=== PATIENT | male | born 1955 | race Caucasian/White ===

== ENCOUNTER 2019-07-09 14:48 | Inpatient (IN) | payer OTHER ==
[~2019-07-09] VITALS: Ht 177.8 cm; Wt 89.0 kg
[2019-07-09 15:45] LABS: Basophils # (auto) 0 uL; Basophils % (auto) 0.7 % (0.0-2.0); Eosinophils # (auto) 0.3 uL; Eosinophils % (auto) 7.1 % (0.0-7.0); Hematocrit 38.1 % (41.0-53.0); Hemoglobin 13.2 g/dL (13.5-17.5); Lymphocytes # (auto) 1.8 uL; Lymphocytes % (auto) 37.3 % (10.0-50.0); Mean Corpuscular Hemoglobin 30.2 pg (28.0-32.0); Mean Corpuscular Hgb Conc. 34.6 g/dL (32.0-36.0); Mean Corpuscular Volume 87.3 fL (80.0-100.0); Monocytes # (auto) 0.4 uL; Monocytes % (auto) 8.2 % (0.0-12.0); Neutrophils # (auto) 2.2 uL; Neutrophils % (auto) 46.7 % (37.0-80.0); Nucleated Red Blood Cells % 0.1 %; Platelet Count (auto) 204 10^3/uL (140-450); Red Blood Cells 4.37 10^6/uL (4.5-5.90); Red Cell Distribution Width 13.7 % (11.8-14.3); White Blood Cell 4.8 10^3/uL (4.4-10.8)
[2019-07-09 16:10] LABS: Calcium 8.7 mg/dL (8.5-10.1); Chloride 107 mmol/L (98-107); Potassium 3.9 mmol/L (3.5-5.1); Sodium 140 mmol/L (136-145)
[2019-07-09 16:13] LABS: Albumin 3.5 g/dL (3.4-5.0); Anion Gap 6 (5-15); BUN/Creatinine Ratio 13.5; Blood Alcohol < 3.0 mg/dL (0-5); Blood Urea Nitrogen 13 mg/dL (7-18); Carbon Dioxide 27 mmol/L (21-32); GFR African American 102 mL/min; GFR Non-African American 84 mL/min; Glucose 102 mg/dL (74-106); Magnesium 2.4 mg/dL (1.6-2.6)
[2019-07-09 16:18] LABS: Alanine Aminotransferase 17 U/L (16-61); Alkaline Phosphatase 67 U/L (45-117); Aspartate Aminotransferase 13 U/L (15-37); Bilirubin, Total 0.3 mg/dL (0.2-1.0); Total Protein 6.9 g/dL (6.4-8.2)
[2019-07-09 16:46] LABS: Urine WBC None Seen /hpf (0 - 3)
[2019-07-09 16:55] LABS: INR 0.94 (0.9-1.15); Partial Thromboplastin Time 26.5 sec (23.64-32.05)
[2019-07-09 17:00] LABS: Urine Bacteria NONE SEEN /hpf (None Seen); Urine Blood Negative /uL (Negative); Urine Specific Gravity 1.007 (1.001-1.035)
[2019-07-09] MEDS ORDERED: NITROGLYCERIN 0.4 MG SL TAB SL PRN (17:15)
[2019-07-09] MEDS ORDERED: MORPHINE SULF INJ 2 MG/ML SYRINGE 1ML IV PRN (17:15)
[2019-07-09] MEDS ORDERED: hydrALAZINE HCL 20 MG/ML VL IV PRN (17:45)
[2019-07-09] MEDS ORDERED: ASPirin 81 mg TAB ONE (17:53)
[2019-07-09] MEDS: ASPirin 81 mg TAB PO SCH (17:56)
[2019-07-09] MEDS ORDERED: ASPirin 81 mg TAB PO ONE ×2 (18:00)
[2019-07-09 18:20] VITALS: BP 148/77
--- NOTE | 2019-07-09 18:26 | NUR ---
Telemetry admit from ER [facility] admitted to Telemetry unit after SBAR received. Patient oriented to Muna Valentin, primary RN, unit, room, bed, and unit policies regarding patient care and visiting hours. Patient now on continuous telemetry monitoring, tele box #[id number] and telemetry reading on arrival to unit is SB @ 40. Patient is asymptomatic, BP 148/77, HR 40, o2 saturation 98%. Patient placed on 3 LPM/NC. Bed set to lowest position/locked, bedside rails up x2, call light within reach. Instructed patient to call for assistance. Patient verbalized understanding. Will continue to
[2019-07-09] MEDS: SODIUM CHLORIDE 0.9% 1,000 ML IV SCH (18:55)
--- NOTE | 2019-07-09 19:14 | NUR ---
ENDORSED CARE TO MACHO GONZALEZ.
--- NOTE | 2019-07-09 19:44 | NUR ---
open note assumed care of pt. upon entering room pt awake, alert and oriented x4, pt on 2l nc no distress noted. pt report "stiff neck" and face does appear to droop on left side. pt denies any other deficit. pt updated on plan of care. no questions at this time. bed locked, low and 2x rails up. call light in reach. no additional questions at this time. pt meal was heated up per pt request. will round on pt q1hr and prn.
[2019-07-09 20:22] LABS: INR 0.96 (0.9-1.15)
[2019-07-09 20:29] LABS: Cholesterol 153 mg/dL (< 200); HDL Cholesterol 28 mg/dL (40-59); LDL Cholesterol 91 mg/dL (< 100); Triglycerides 174 mg/dL (< 150)
[2019-07-09 21:00] VITALS: BP 132/65
--- NOTE | 2019-07-09 22:06 | NUR ---
Dr Gutierrez called. orders received for NPO after midnight. also for atropine 0.5mg ivp q6prn for HR less than 40bpm.
--- NOTE | 2019-07-09 22:48 | NUR ---
radha called. pt HR in 30's. upon entering room, pt eyes closed, breathing even and unlabored. pt easy to wake via name. alert and oriented x4. no complaints at this time. vitals 142/76mmhg [id number] rr16 97% o2 saturation on room air. pt got up to ambulate to restroom, heart rate increased to 50bpm. call light in reach, will continue to monitor.
[2019-07-09] MEDS ORDERED: ATROPINE SULFATE 1 MG/1 ML VIAL ONE (23:17)
[2019-07-09 23:30] VITALS: BP_SYST 125; BP_SYST 142; BP_DIAS 44; BP_DIAS 76
[2019-07-09] MEDS: ATROPINE SULF 1 MG/10ml SYR IV PRN (23:33)
--- NOTE | 2019-07-09 23:45 | NUR ---
pt HR in the 30's. upon entering room, pt easy to wake via name, alert and oriented x4. no complaints. no distress noted or verbalized. prn atropine 0.5mg administered pr MD order for HR less than 40bpm. pt tolerated well. call light in reach. will continue to monitor.
[2019-07-10] MEDS ORDERED: ATROPINE SULF 1 MG/10ml SYR IV ONE
--- NOTE | 2019-07-10 00:11 | NUR ---
rounds upon entering room, pt eyes closed, breathing is even an unlabored. pt on 2L NC no distress noted. pt o2 sat 97%. HR 50bpm. call light in reach, will continue to monitor.
[2019-07-10] MEDS: ATROPINE SULF 1 MG/10ml SYR IV PRN (04:18)
--- NOTE | 2019-07-10 04:18 | NUR ---
PT HR 29BPM. upon entering room pt eyes closed, breathing even and unlabored. pt easily awake via name. pt alert and oriented x4. pt on 2L via NC no distress noted. pt vitals 97.8f oral, rr19 95% o2 saturation on 2L nc bp 154/70mmhg. pt given IV atropine 0.5mg. pt tolerated well. pt complaints of 10/0-10 pain in back. will page Mynor HART for pt complaint of pain.
[2019-07-10 04:30] VITALS: BP 154/70
--- NOTE | 2019-07-10 04:31 | NUR ---
pt HR 67bpm. pt awake, alert and oriented. paged and spoke with Dr Blum, to notify of HR; no additional orders given for bradycardia given. also made MD aware of pt reports pain 10/0-10. received order for MS 2mg iv q4 prn. will input and administer per and KINA order.
[2019-07-10 06:17] LABS: Basophils # (auto) 0.1 uL; Basophils % (auto) 1.3 % (0.0-2.0); Eosinophils # (auto) 0.3 uL; Eosinophils % (auto) 6.3 % (0.0-7.0); Hematocrit 37.9 % (41.0-53.0); Hemoglobin 13.1 g/dL (13.5-17.5); Lymphocytes # (auto) 1.2 uL; Mean Corpuscular Hgb Conc. 34.5 g/dL (32.0-36.0); Mean Corpuscular Volume 86.8 fL (80.0-100.0); Monocytes # (auto) 0.4 uL; Monocytes % (auto) 8.2 % (0.0-12.0); Neutrophils # (auto) 2.6 uL; Neutrophils % (auto) 57.2 % (37.0-80.0); Nucleated Red Blood Cells % 0.1 %; Platelet Count (auto) 192 10^3/uL (140-450); Red Blood Cells 4.37 10^6/uL (4.5-5.90); Red Cell Distribution Width 13.8 % (11.8-14.3); White Blood Cell 4.5 10^3/uL (4.4-10.8)
[2019-07-10 06:34] LABS: BUN/Creatinine Ratio 14.5; Calcium 8.4 mg/dL (8.5-10.1); Potassium 3.8 mmol/L (3.5-5.1)
[2019-07-10 08:00] VITALS: BP 144/74
[2019-07-10 09:13] VITALS: BP 144/74
--- NOTE | 2019-07-10 09:30 | NUR ---
DR. CRUZ AT BEDSIDE DR. CRUZ TOLD THE PT THAT HE NEED PACEMAKER, PT VERBALIZED UNDERSTANDING. PER DR. CRUZ PT NEED ECHOCARDIOGRAM PRIOR TO PROCEDURE. WILL FOLLOW UP ECHOCARDIOGRAM.
[2019-07-10] MEDS: ASPirin 81 mg TAB PO SCH (10:00)
[2019-07-10] MEDS: MORPHINE SULF INJ 2 MG/ML SYRINGE 1ML IV PRN ×3 (10:12→23:37)
--- NOTE | 2019-07-10 10:16 | NUR ---
DR. SCHWARTZ AT BEDSIDE, PT MADE AWARE PT DOESN'T NEED MRI OF THE BRAIN. DR. SCHWARTZ SAID HE SPOKE WITH DR. WALKER AND HE SAID FACIAL DROOPING IS DUE TO BELLS PALSY AND NOT STROKE.
[2019-07-10] MEDS ORDERED: MORP30TA PO (10:44)
[2019-07-10] MEDS ORDERED: IBUP800T24 PO (10:44)
--- NOTE | 2019-07-10 11:15 | NUR ---
PT TRANSPORTED TO [facility] VIA BED, PRE-OP CHECKLIST COMPLETED, CONSENTS SIGNED , IV ON LEFT FOREARM PATENT AND FLUSHING, CHLORHEXIDINE WIPES DONE, NO SIGNS OF DISTRESS AT THIS TIME.
[2019-07-10] MEDS ORDERED: LIDOCAINE 2%HCL (LOCAL ANESTH.) INJ 20ML MDV ONE (11:32)
[2019-07-10] MEDS ORDERED: BACITRACIN INJ 50000 UNIT VIAL ONE (11:48)
[2019-07-10] MEDS ORDERED: VANCOMYCIN 1GM/250ML 250 ML IV ONE (11:48)
[2019-07-10] MEDS ORDERED: VANCOMYCIN HCL 1000 MG VL ONE (11:48)
[2019-07-10] MEDS ORDERED: MIDAZOLAM HCL 1MG/1ML-2 ML VIAL ONE (11:55)
[2019-07-10] MEDS ORDERED: fentaNYL CITRATE 100 MCG/2 ML VL ONE (11:55)
--- NOTE | 2019-07-10 14:39 | NUR ---
received report from MACHO Ellsworth of cathlab
[2019-07-10] MEDS: SODIUM CHLORIDE 0.9% 1,000 ML IV SCH ×2 (17:19→20:49)
[2019-07-10 17:23] VITALS: BP 150/89
--- NOTE | 2019-07-10 18:39 | NUR ---
CALLED DR. SCHWARTZ IF PT CAN HAVE NICOTINE PATCH, DR. SCHWARTZ ORDERED NICOTINE PATCH 14MG NOW AND DAILY.
[2019-07-10] MEDS ORDERED: NICOTINE 14 MG/24HR TOPICAL PATCH TD ONE (18:45)
--- NOTE | 2019-07-10 19:52 | NUR ---
[employer] at bedside. no issues noted. reports will return for another check in the AM.
--- NOTE | 2019-07-10 20:00 | NUR ---
open note assumed care of pt. upon entering room pt awake, alert and oriented x4. pt on room air no distress noted or expressed. pt dressing to left upper chest clean dry and intact. pt aware of activity restriction regarding left arm and is in sling. pt updated on plan of care. no questions at this time. pt call light in reach. will round on pt q1hr and prn.
[2019-07-10 22:00] VITALS: BP 134/70
[2019-07-10] MEDS: DOXYCYCLINE 100 MG TAB/CAP PO SCH (22:15)
[2019-07-10] MEDS: ONDANSETRON HCL 4 MG/2 ML VIAL IV PRN (23:17)
[2019-07-11] MEDS ORDERED: VANCOMYCIN 1GM/250ML 250 ML IV SCH
[2019-07-11] MEDS: MORPHINE SULF INJ 2 MG/ML SYRINGE 1ML IV PRN ×2 (03:50→10:23)
[2019-07-11 05:34] VITALS: BP 129/68
[2019-07-11 06:00] LABS: Basophils # (auto) 0 uL; Basophils % (auto) 0.5 % (0.0-2.0); Eosinophils # (auto) 0.1 uL; Hematocrit 37.6 % (41.0-53.0); Hemoglobin 13.1 g/dL (13.5-17.5); Lymphocytes # (auto) 1.1 uL; Lymphocytes % (auto) 15.2 % (10.0-50.0); Mean Corpuscular Hemoglobin 30.3 pg (28.0-32.0); Mean Corpuscular Hgb Conc. 34.8 g/dL (32.0-36.0); Monocytes # (auto) 0.5 uL; Monocytes % (auto) 7.6 % (0.0-12.0); Neutrophils # (auto) 5.3 uL; Neutrophils % (auto) 74.7 % (37.0-80.0); Nucleated Red Blood Cells % 0.1 %; Platelet Count (auto) 179 10^3/uL (140-450); Red Blood Cells 4.32 10^6/uL (4.5-5.90); White Blood Cell 7.1 10^3/uL (4.4-10.8)
[2019-07-11 06:16] LABS: BUN/Creatinine Ratio 14.1; Calcium 8.3 mg/dL (8.5-10.1); Potassium 3.4 mmol/L (3.5-5.1)
[2019-07-11] MEDS: ASPirin 81 mg TAB PO SCH (08:31)
[2019-07-11 09:00] VITALS: BP 119/69
[2019-07-11] MEDS: DOXYCYCLINE 100 MG TAB/CAP PO SCH (09:41)
[2019-07-11] MEDS ORDERED: NICOTINE 14 MG/24HR TOPICAL PATCH TD SCH (10:00)
[2019-07-11] MEDS: ONDANSETRON HCL 4 MG/2 ML VIAL IV PRN (10:23)
[2019-07-11 11:39] VITALS: BP 125/55
[2019-07-11 12:00] VITALS: BP 125/55
[2019-07-11 12:45] VITALS: BP 126/73
--- NOTE | 2019-07-11 13:00 | NUR ---
Discharge instructions given as ordered. Encourage to follow up with PMD as instructed. All questions and concerns addressed. Patient verbalized understanding. Left arm sling maintained. Drsg to left upper chest pacemaker insertion site clean, dry and intact. Medication reconciliation form completed and copy given to patient. IV removed with catheter intact, pressure dressing applied. Telemetry unit returned to ICU. Patient taken to vehicle via wheelchair with all personal belongings, accompanied by staff and family member. No distress noted at time of departure.
== END 2019-07-11 15:05 | disposition home health service (06) | DRG 243 ==
LOC: ER 14:53 → TELE 14:54 → CENTRAL 18:37 → TELE-CENTR 18:57
PROVIDERS: ADMIT Internal Medicine; ATTEND Internal Medicine
PROC: 0JH606Z Insertion of Pacemaker, Dual Chamber into Chest Subcutaneous Tissue and Fascia, Open Approach (ICD-10-PCS; principal; 2019-07-10)
PROC: 02HK3JZ Insertion of Pacemaker Lead into Right Ventricle, Percutaneous Approach (ICD-10-PCS; 2019-07-10)
PROC: 02H63JZ Insertion of Pacemaker Lead into Right Atrium, Percutaneous Approach (ICD-10-PCS; 2019-07-10)
PROC: B5171ZZ Fluoroscopy of Left Subclavian Vein using Low Osmolar Contrast (ICD-10-PCS; 2019-07-10)
PROC: B5161ZZ Fluoroscopy of Right Subclavian Vein using Low Osmolar Contrast (ICD-10-PCS; 2019-07-10)
DX: I49.5 Sick sinus syndrome (principal); F11.20 Opioid dependence, uncomplicated; F32.1 Major depressive disorder, single episode, moderate; I10 Essential (primary) hypertension; F17.210 Nicotine dependence, cigarettes, uncomplicated; G51.0 Bell's palsy; G89.4 Chronic pain syndrome; M19.90 Unspecified osteoarthritis, unspecified site; R47.81 Slurred speech; Z86.73 Personal history of transient ischemic attack (TIA), and cerebral infarction without residual deficits
CPT/HCPCS: 33208; 36012; 36415; 70450; 71045; 80048; 80053; 80061; 80320; 81001; 83735; 84484; 85025; 85610; 85730; 93005; 93306; 93886; 94761; 96365; 96367; G0378; J0461; J2250; J2405

== ENCOUNTER 2022-02-12 16:59 | Inpatient (IN) | payer OTHER ==
[~2022-02-12] VITALS: Ht 177.8 cm; Wt 94.7 kg
[~2022-02-12 16:59] MED LIST: IBUP800T27 PO; MORP30TA PO
[2022-02-12 17:58] LABS: Basophils # (auto) 0 10 ^3/uL (0-0.2); Basophils % (auto) 0.2 % (0.0-2.0); Eosinophils # (auto) 0.3 10 ^3/uL (0-0.8); Hematocrit 36.1 % (41.0-53.0); Hemoglobin 12.5 g/dL (13.5-17.5); Lymphocytes # (auto) 0.6 10 ^3/uL (0.4-5.4); Lymphocytes % (auto) 12.1 % (10.0-50.0); Mean Corpuscular Hemoglobin 30.2 pg (28.0-32.0); Mean Corpuscular Hgb Conc. 34.7 g/dL (32.0-36.0); Monocytes # (auto) 0.3 10 ^3/uL (0-1.3); Monocytes % (auto) 5.3 % (0.0-12.0); Neutrophils % (auto) 77.4 % (37.0-80.0); Red Blood Cells 4.15 10^6/uL (4.5-5.90); Red Cell Distribution Width 13.8 % (11.8-14.3); White Blood Cell 5.2 10^3/uL (4.4-10.8)
[2022-02-12 18:01] LABS: Albumin 3.4 g/dL (3.4-5.0); BUN/Creatinine Ratio 13.6; Calcium 8.5 mg/dL (8.5-10.1); Magnesium 2.5 mg/dL (1.6-2.6); Potassium 3.5 mmol/L (3.5-5.1)
[2022-02-12 18:05] LABS: Bilirubin, Total 0.3 mg/dL (0.2-1.0); Total Protein 7.1 g/dL (6.4-8.2)
[2022-02-12] MEDS ORDERED: ASPirin 81 mg TAB PO ONE (19:45)
[2022-02-12] MEDS ORDERED: HYDROcodone-ACET 5/325MG TAB PO ONE (19:45)
[2022-02-12] MEDS ORDERED: IOHEXOL 350 MG/ML 100ML IJ ONE (19:47)
[2022-02-12] MEDS ORDERED: NITROGLYCERIN 0.4 MG SL TAB SL ONE (21:00)
[2022-02-12] MEDS ORDERED: NITROGLYCERIN 0.4 MG SL TAB SL PRN (21:30)
[2022-02-12] MEDS ORDERED: DOCUSATE SOD 100 MG CAP PO PRN (21:30)
[2022-02-12] MEDS ORDERED: MORPHINE SULFATE INJECTION 2 MG/ML SYRG IV PRN (21:30)
[2022-02-12] MEDS ORDERED: ACETAMINOPHEN 325 MG TAB PO PRN (21:30)
[2022-02-12] MEDS: ASCORBIC ACID 500 MG TAB PO SCH (23:45)
[2022-02-12] MEDS: MORPHINE SULFATE INJECTION 2 MG/ML SYRG IV PRN (23:46)
[2022-02-13] VITALS (7 sets, daily range): BP systolic 103–150; BP diastolic 65–82
[2022-02-13] MEDS: MORPHINE SULFATE INJECTION 2 MG/ML SYRG IV PRN ×3 (03:33→12:36)
[2022-02-13 06:03] LABS: Basophils # (auto) 0 10 ^3/uL (0-0.2); Basophils % (auto) 0.4 % (0.0-2.0); Eosinophils # (auto) 0.3 10 ^3/uL (0-0.8); Eosinophils % (auto) 4.3 % (0.0-7.0); Hematocrit 36.2 % (41.0-53.0); Hemoglobin 12.7 g/dL (13.5-17.5); Lymphocytes # (auto) 1.6 10 ^3/uL (0.4-5.4); Mean Corpuscular Hemoglobin 30.4 pg (28.0-32.0); Mean Corpuscular Volume 86.9 fL (80.0-100.0); Monocytes # (auto) 0.4 10 ^3/uL (0-1.3); Monocytes % (auto) 7.3 % (0.0-12.0); Neutrophils # (auto) 3.7 10 ^3/uL (1.6-8.6); Nucleated Red Blood Cells % 0.2 %; Red Blood Cells 4.17 10^6/uL (4.5-5.90); Red Cell Distribution Width 13.9 % (11.8-14.3)
[2022-02-13 06:13] LABS: Potassium 3.5 mmol/L (3.5-5.1)
[2022-02-13 06:18] LABS: Albumin 3.4 g/dL (3.4-5.0); BUN/Creatinine Ratio 12.9; Calcium 8.7 mg/dL (8.5-10.1)
[2022-02-13 06:20] LABS: Bilirubin, Total 0.4 mg/dL (0.2-1.0)
[2022-02-13] MEDS ORDERED: ADENOSINE 76 MG in GIVE UN-DILUTED 0 ML IV STA (09:35)
[2022-02-13] MEDS: ENOXAPARIN SOD 40 MG/0.4 ML SYRINGE SC SCH (11:17)
[2022-02-13] MEDS: ZINC SULFATE 220mg CAP or TAB PO SCH (11:17)
[2022-02-13] MEDS: ASCORBIC ACID 500 MG TAB PO SCH ×2 (11:17→22:16)
[2022-02-13] MEDS: MULTIPLE VITAMIN TAB PO SCH (11:17)
[2022-02-13] MEDS: FUROSEMIDE 20 MG/2 ML VIAL IV SCH (11:18)
[2022-02-13] MEDS ORDERED: traZODone HCL 50 MG TAB PO PRN (15:30)
[2022-02-13] MEDS ORDERED: ALPRAZolam 0.5 MG TAB PO PRN (15:30)
[2022-02-13] MEDS ORDERED: IBUPROFEN 800 MG TAB PO PRN (15:30)
[2022-02-13] MEDS: HYDROcodone-ACET 5/325MG TAB PO PRN (17:29)
[2022-02-13] MEDS ORDERED: ATORVASTATIN 20 MG TAB PO SCH (22:00)
[2022-02-13] MEDS: MORPHINE SULF 30 mg ER tab PO SCH (22:15)
[2022-02-14] MEDS: HYDROcodone-ACET 5/325MG TAB PO PRN ×2 (03:03→17:00)
[2022-02-14 05:00] VITALS: BP 145/87
[2022-02-14 06:48] LABS: Cholesterol 172 mg/dL (< 200); HDL Cholesterol 41 mg/dL (40-59); LDL Cholesterol 119 mg/dL (< 100); Triglycerides 82 mg/dL (< 150)
[2022-02-14] MEDS: ZINC SULFATE 220mg CAP or TAB PO SCH (08:44)
[2022-02-14] MEDS: ASCORBIC ACID 500 MG TAB PO SCH (08:44)
[2022-02-14] MEDS: MULTIPLE VITAMIN TAB PO SCH (08:44)
[2022-02-14 09:00] VITALS: BP 128/85
[2022-02-14] MEDS: FUROSEMIDE 20 MG/2 ML VIAL IV SCH (10:00)
[2022-02-14] MEDS: ENOXAPARIN SOD 40 MG/0.4 ML SYRINGE SC SCH (10:00)
[2022-02-14] MEDS: MORPHINE SULF 30 mg ER tab PO SCH (10:08)
[2022-02-14 12:29] VITALS: BP 128/76
[2022-02-14] MEDS ORDERED: IPRATROPIUM BROM 0.5 MG/2.5ML INH SOL NEB SCH (14:00)
[2022-02-14 14:46] VITALS: BP 128/76
[2022-02-14] MEDS ORDERED: BECL40AE11 IN (15:37)
[2022-02-14] MEDS ORDERED: ALBUAER3 IN (15:37)
[2022-02-14 17:00] VITALS: BP 114/71
[2022-02-14] MEDS ORDERED: BUDESONIDE (INHALATION) 0.5 MG/2 ML NEB NEB SCH (22:00)
== END 2022-02-14 18:50 | disposition home or self-care (01) | DRG 313 ==
LOC: ER 16:59 → TELE 22:07 → CENTRAL 23:35 → TELE-CENTR 02-13 03:09 → OBSVTOIN 02-13 10:52
PROVIDERS: ADMIT Internal Medicine; ATTEND Internal Medicine
PROC: 4B02XSZ Measurement of Cardiac Pacemaker, External Approach (ICD-10-PCS; principal; 2022-02-14)
DX: R07.9 Chest pain, unspecified (principal); E11.9 Type 2 diabetes mellitus without complications; E66.01 Morbid (severe) obesity due to excess calories; E78.5 Hyperlipidemia, unspecified; F17.210 Nicotine dependence, cigarettes, uncomplicated; F41.9 Anxiety disorder, unspecified; G89.29 Other chronic pain; I11.0 Hypertensive heart disease with heart failure; I50.9 Heart failure, unspecified; R00.2 Palpitations; F32.A Depression, unspecified; H40.9 Unspecified glaucoma; K21.9 Gastro-esophageal reflux disease without esophagitis; Z20.822 Contact with and (suspected) exposure to COVID-19; Z68.30 Body mass index [BMI] 30.0-30.9, adult; Z95.0 Presence of cardiac pacemaker; Z79.84 Long term (current) use of oral hypoglycemic drugs
CPT/HCPCS: 36415; 71045; 71275; 78452; 80053; 80061; 83735; 83880; 84484; 85025; 93017; 93306; 94640; G0378; J0153

== ENCOUNTER 2022-05-11 20:01 | Emergency (ER) | payer OTHER ==
[~2022-05-11] VITALS: Ht 177.8 cm; Wt 90.8 kg
[~2022-05-11 20:01] MED LIST changes: +ALBUAER3 IN; +BECL40AE11 IN
[2022-05-11 20:59] VITALS: BP 134/76
== END 2022-05-12 05:28 | disposition left against medical advice (07) ==
LOC: ER 20:09
DX: S61.451A Open bite of right hand, initial encounter (principal); Z53.21 Procedure and treatment not carried out due to patient leaving prior to being seen by health care provider; W54.0XXA Bitten by dog, initial encounter; Y93.89 Activity, other specified; Y92.89 Other specified places as the place of occurrence of the external cause; Y99.8 Other external cause status
CPT/HCPCS: 73130

== ENCOUNTER 2023-05-15 20:13 | Emergency (ER) | payer OTHER ==
[~2023-05-15] VITALS: Ht 177.8 cm; Wt 93.2 kg
[~2023-05-15 20:13] MED LIST changes: +IBUP-1456 PO; -IBUP800T27 PO
[2023-05-15 20:51] LABS: Urine WBC None Seen /hpf (0 - 3)
[2023-05-15 21:15] LABS: Urine Bacteria FEW /hpf (None Seen); Urine Blood Negative /uL (Negative); Urine Specific Gravity 1.004 (1.001-1.035)
[2023-05-15 21:17] LABS: Basophils # (auto) 0 10 ^3/uL (0-0.2); Basophils % (auto) 0.6 % (0.0-2.0); Eosinophils # (auto) 0.3 10 ^3/uL (0-0.8); Eosinophils % (auto) 5.4 % (0.0-7.0); Hematocrit 37.5 % (41.0-53.0); Hemoglobin 12.7 g/dL (13.5-17.5); Lymphocytes # (auto) 1.7 10 ^3/uL (0.4-5.4); Lymphocytes % (auto) 26.6 % (10.0-50.0); Mean Corpuscular Hemoglobin 28.4 pg (28.0-32.0); Mean Corpuscular Hgb Conc. 33.9 g/dL (32.0-36.0); Mean Corpuscular Volume 83.7 fL (80.0-100.0); Monocytes # (auto) 0.5 10 ^3/uL (0-1.3); Monocytes % (auto) 7.9 % (0.0-12.0); Neutrophils # (auto) 3.7 10 ^3/uL (1.6-8.6); Neutrophils % (auto) 59.5 % (37.0-80.0); Nucleated Red Blood Cells % 0.1 %; Red Blood Cells 4.48 10^6/uL (4.5-5.90); Red Cell Distribution Width 15.1 % (11.8-14.3); White Blood Cell 6.3 10^3/uL (4.4-10.8)
[2023-05-15 21:30] LABS: Albumin 3.5 g/dL (3.4-5.0); Calcium 8.5 mg/dL (8.5-10.1)
[2023-05-15 21:39] LABS: Bilirubin, Total 0.6 mg/dL (0.2-1.0); Total Protein 7.5 g/dL (6.4-8.2)
[2023-05-15 21:44] LABS: Potassium 2.6 mmol/L (3.5-5.1)
[2023-05-15] MEDS ORDERED: POTASSIUM CHL 20MEQ/100ML 100 ML IV ONE (22:30)
[2023-05-15] MEDS ORDERED: FUROSEMIDE 20 MG/2 ML VIAL IV ONE (22:45)
[2023-05-15] MEDS ORDERED: POTA-180 PO (23:54)
[2023-05-15] MEDS ORDERED: FURO40TA4 PO (23:54)
[2023-05-16 01:08] VITALS: BP 98/56
== END 2023-05-16 01:29 | disposition home or self-care (01) ==
LOC: ER 20:13
DX: R06.02 Shortness of breath (principal); I10 Essential (primary) hypertension; R60.9 Edema, unspecified; E87.6 Hypokalemia; F17.210 Nicotine dependence, cigarettes, uncomplicated; Z88.6 Allergy status to analgesic agent
CPT/HCPCS: 36415; 71045; 80053; 81001; 83880; 84484; 85025; 93005; 93970; 96365; 96366; 96375; 99285; J1940; J3480

== ENCOUNTER 2023-11-04 11:47 | Emergency (ER) | payer OTHER ==
[~2023-11-04] VITALS: Ht 177.8 cm; Wt 92.0 kg
[~2023-11-04 11:47] MED LIST changes: +FURO40TA4 PO; +POTA-180 PO
[2023-11-04 13:16] LABS: Basophils # (auto) 0 10 ^3/uL (0-0.2); Basophils % (auto) 1.1 % (0.0-2.0); Eosinophils # (auto) 0.2 10 ^3/uL (0-0.8); Eosinophils % (auto) 4.5 % (0.0-7.0); Hematocrit 41.9 % (41.0-53.0); Hemoglobin 13.9 g/dL (13.5-17.5); Lymphocytes # (auto) 1.1 10 ^3/uL (0.4-5.4); Lymphocytes % (auto) 24.6 % (10.0-50.0); Mean Corpuscular Hemoglobin 28.9 pg (28.0-32.0); Mean Corpuscular Hgb Conc. 33.1 g/dL (32.0-36.0); Mean Corpuscular Volume 87.4 fL (80.0-100.0); Monocytes # (auto) 0.4 10 ^3/uL (0-1.3); Monocytes % (auto) 9.6 % (0.0-12.0); Neutrophils # (auto) 2.7 10 ^3/uL (1.6-8.6); Neutrophils % (auto) 60.2 % (37.0-80.0); Nucleated Red Blood Cells % 0.1 %; Red Cell Distribution Width 14.3 % (11.8-14.3); White Blood Cell 4.6 10^3/uL (4.4-10.8)
[2023-11-04 13:37] LABS: Alanine Aminotransferase 14 U/L (7-40); Albumin 4.4 g/dL (3.2-4.8); Alkaline Phosphatase 74 U/L (46-116); Anion Gap 6 (5-15); Aspartate Aminotransferase 14 U/L (13-40); Bilirubin, Total 0.4 mg/dL (0.2-1.0); Blood Urea Nitrogen 15 mg/dL (9-23); Calcium 9.7 mg/dL (8.5-10.1); Carbon Dioxide 30 mmol/L (20-30); Chloride 102 mmol/L (98-107); Glucose 101 mg/dL (74-106); Potassium 4.4 mmol/L (3.5-5.1); Sodium 138 mmol/L (136-145)
[2023-11-04 13:56] LABS: Urine Bacteria NONE SEEN /hpf (None Seen); Urine Blood Negative /uL (Negative); Urine Clarity Clear (Clear); Urine Hyaline Cast FEW /lpf (0 - 2); Urine Protein, UAD Negative (Negative); Urine Specific Gravity 1.005 (1.001-1.035); Urine Urobilinogen Normal (Negative); Urine WBC <1 /hpf (0 - 3); Urine pH 5.5 (5.0-8.0)
[2023-11-04 13:58] LABS: Urine Color Straw (Yellow)
[2023-11-04 14:55] VITALS: BP 105/74; PULSE 65; RESP 16; TEMP 96.9; O2SAT 96
== END 2023-11-04 14:58 | disposition home or self-care (01) ==
LOC: ER 11:47
DX: M79.662 Pain in left lower leg (principal); F17.210 Nicotine dependence, cigarettes, uncomplicated; M79.89 Other specified soft tissue disorders
CPT/HCPCS: 36415; 80053; 81001; 83880; 84484; 85025; 93970

== ENCOUNTER 2024-03-18 04:10 | Emergency (ER) | payer MEDICARE, OTHER ==
[~2024-03-18] VITALS: Ht 177.8 cm; Wt 95.9 kg
[2024-03-18 04:28] VITALS: O2SAT 94
[2024-03-18] MEDS ORDERED: ONDANSETRON HCL 4 MG/2 ML VIAL IV ONE (04:30)
[2024-03-18 04:33] LABS: Basophils # (auto) 0 10 ^3/uL (0-0.2); Basophils % (auto) 0.3 % (0.0-2.0); Eosinophils # (auto) 0 10 ^3/uL (0-0.8); Hematocrit 37.8 % (41.0-53.0); Lymphocytes # (auto) 0.8 10 ^3/uL (0.4-5.4); Lymphocytes % (auto) 8.6 % (10.0-50.0); Mean Corpuscular Hemoglobin 29.5 pg (28.0-32.0); Mean Corpuscular Hgb Conc. 34.5 g/dL (32.0-36.0); Mean Corpuscular Volume 85.4 fL (80.0-100.0); Monocytes # (auto) 0.7 10 ^3/uL (0-1.3); Monocytes % (auto) 7.1 % (0.0-12.0); Neutrophils # (auto) 7.8 10 ^3/uL (1.6-8.6); Red Blood Cells 4.43 10^6/uL (4.5-5.90); Red Cell Distribution Width 15.5 % (11.8-14.3); White Blood Cell 9.3 10^3/uL (4.4-10.8)
[2024-03-18 04:38] VITALS: BP 156/72; RESP 18
[2024-03-18] MEDS: MORPHINE SULFATE 4 MG/ML SYR/VIAL IV ONE (04:38)
[2024-03-18] MEDS: METOCLOPRAMIDE HCL 5MG/ml INJ 2ml VIAL IV ONE (04:38)
[2024-03-18 04:55] LABS: Alanine Aminotransferase 11 U/L (7-40); Albumin 4.1 g/dL (3.2-4.8); Alkaline Phosphatase 63 U/L (46-116); Anion Gap 8 (5-15); Aspartate Aminotransferase 15 U/L (13-40); BUN/Creatinine Ratio 11.6 (10.0-20.0); Bilirubin, Total 0.4 mg/dL (0.2-1.0); Blood Urea Nitrogen 11 mg/dL (9-23); Calcium 9.7 mg/dL (8.7-10.4); Carbon Dioxide 27 mmol/L (20-30); Chloride 102 mmol/L (98-107); Glucose 130 mg/dL (74-106); Magnesium 2.2 mg/dL (1.6-2.6); Potassium 3.2 mmol/L (3.5-5.1); Sodium 137 mmol/L (136-145); Total Protein 7.2 g/dL (5.7-8.2)
[2024-03-18] MEDS: IOHEXOL 350 MG/ML 100ML IJ ONE (05:05)
[2024-03-18 05:51] LABS: INR 1.03 (0.9-1.15); Partial Thromboplastin Time 25.5 SEC (24.5-34.5); Prothrombin Time 10.9 sec (9.3-11.8)
[2024-03-18 07:02] VITALS: PULSE 72
== END 2024-03-18 07:05 | disposition left against medical advice (07) ==
LOC: ER 04:10
DX: R07.89 Other chest pain (principal); R11.2 Nausea with vomiting, unspecified; Z53.21 Procedure and treatment not carried out due to patient leaving prior to being seen by health care provider; Z79.899 Other long term (current) drug therapy
CPT/HCPCS: 36415; 71045; 71275; 80053; 83735; 83880; 84484; 85025; 85610; 85730; 93005; 96374; 96375; J2270; J2765; Q9967